=== PATIENT | male | born 1950 | race Caucasian/White ===

== ENCOUNTER 2019-02-09 19:15 | Inpatient (IN) | payer MEDICARE, BC ==
--- NOTE | 2019-02-09 19:22 | ED Physician Documentation ---
General Adult - HISTORIAN Historian: patient - HPI Stated Complaint: cough, failed antibitoic treatment, weakness, aches and SOA x 7 days Chief Complaint: General Adult Onset: days ago (7) Timing: still present Severity: moderate Further Comments: yes (He reports over a week ago he was seen and treated by his PCP for a resp illness. He states he did not feel improvement. Rather he feels about 8 days ago he felt worse than he did today. He states he returned a call to his PCP today and he was called in another antibitoic but states he just couldnt take how bad he was feeling. He has body aches, cough, shortness of air, and general fatigue. He has no chest pain per his report. No rash. No out of country travel. He denies any blood in his sputum.) Last known Well Code/Unknown Code: Unknown - ROS CONST: recent illness, weakness, chills. denies: fever, weight loss EYES/ENT: denies: sore throat, nasal drainage CVS/RESP: chest pain, shortness of breath, cough GI/: none MS/SKIN/LYMPH: denies: rash, swollen glands, leg pain NEURO/PSYCH: denies: headache, fainting, dizziness, numbness, difficulty walking, difficulty with speech - PAST HX Past History: CHF, hypertension Immunizations: UTD Allergies/Adverse Reactions: Allergies Allergy/AdvReac Type Severity Reaction Status Date / Time fenoprofen [From Nalfon] Allergy Verified 02/09/19 20:10 Sulfa (Sulfonamide Allergy Verified 02/09/19 20:10 Antibiotics) Home Medications: Ambulatory Orders Medication Instructions Recorded Fluconazole [Diflucan] 150 mg PO DAILY 02/09/19 Furosemide [Lasix] 20 mg PO TID 02/09/19 Guaifenesin [Mucinex] 600 mg PO BID 02/09/19 Linagliptin [Tradjenta] 5 mg PO HS 02/09/19 Metformin HCl [Glucophage] 1,000 mg PO AM 02/09/19 Metformin HCl [Glucophage] 500 mg PO HS 02/09/19 Non-Formulary [Non Form 5] 120 mg PO DAILY 02/09/19 Potassium Chloride [Klor-Con M10] 10 meq PO QID 02/09/19 Simvastatin [Zocor] 20 mg PO HS 02/09/19 Tamsulosin HCl [Flomax] 0.4 mg PO DAILY 02/09/19 Temazepam 30 mg PO HS 02/09/19 - SOCIAL HX Smoking History: non-smoker Alcohol Use: heavy Drug Use: none - FAMILY HX Family History: No - REVIEWED ASSESSMENTS Nursing Assessment Reviewed: Yes Vitals Reviewed: Yes Progress - Progress Progress: 2100: discussed case with Dr Almeida - will admit DG ED Results Lab/Radiology - Radiology Radiology Impressions: EXAMINATION: CHEST 1VIEW HISTORY: cough x10 days COMPARISON: None FINDINGS: There is cervical spinal fusion hardware. There is no focal consolidation, pleural effusion, or pneumothorax. The cardiomediastinal silhouette is normal. The visible bony thorax is intact. IMPRESSION: No acute pulmonary process. Electronically signed on Feb 09, 2019 7:57:59 PM CDT by: Jose Soriano CT angiography chest History: Shortness of breath Findings: Transverse chest sections are obtained after 85 mL intravenous Omnipaque 350 from which multiplanar 3D maximum intensity projections are obtained. Anterior fusion hardware is present at the cervicothoracic junction. Pulmonary arteries are patent without acute pulmonary embolism. Main pulmonary artery diameter is 4 cm. Several normal sized mediastinal lymph nodes are present, some containing calcifications consistent with old granulomatous disea se. Coronary artery calcifications and normal heart size are observed. A 5 mm lateral right upper lobe nodule is present. Subtle bilateral diffuse central lobular nodules are present raising the possibility of respiratory bronchiolitis or infectious bronchiolitis. There is no confluent infiltrate or pleural effusion. Upper abdomen sections reveal splenomegaly, calcified splenic granulomas, T12 v ertebral body hemangioma, and advanced L1-2 degenerative disc disease. Impression: 1. Diffuse subtle centrilobular nodule pattern raising the possibility of respiratory or infectious bronchiolitis. 2. 5 mm right upper lobe nodule. Recommend six-month non-contrast CT follow-up. 3. Central pulmonary artery enlargement suggests pulmonary hypertension. 4. Mild splenomegaly and calcified splenic granulomas. 5. Coronary artery calcifications. Electronically signed on Feb 09, 2019 8:56:38 PM CDT by: Kurt Mackenzie General Adult Physical Exam - PHYSICAL EXAM GENERAL APPEARANCE: no distress EENT: eye inspection normal, ENT inspection normal, pharynx normal, no signs of dehydration, JEREMI, TM's nml, dry mucous membranes NECK: normal inspection. No: lymphadenopathy RESPIRATORY: no resp distress, chest non-tender, breath sounds normal CVS: reg rate & rhythm, heart sounds normal, equal pulses, no murmur ABDOMEN: soft, normal bowel sounds, non-tender BACK: normal inspection, no CVA tenderness SKIN: warm/dry, other (he is iman in color from his chest up . His SO states this is normal but his face is more flused today at times ) EXTREMITIES: non-tender, normal range of motion, no evidence of injury, no edema NEURO: oriented X3 Discharge Clincal Impression: Pneumonia Qualifiers: Pneumonia type: due to unspecified organism Laterality: bilateral Lung location: unspecified part of lung Qualified Code(s): J18.9 - Pneumonia, unspecified organism Condition: Fair Disposition: ADMITTED INPATIENT Decision to Admit: [id number] Date of Decison to Admit: 02/09/19 Decision Time: 21:06
[2019-02-09] MEDS ORDERED: 0.9 % SODIUM CHLORIDE 1,000 ML IV ONE (19:38)
[2019-02-09] MEDS ORDERED: ASPIRIN 81 MG CHEW TAB PO ONE (19:38)
[2019-02-09 20:08] LABS: eGFR (Non-African) > 60
[2019-02-09 20:10] LABS: MEAN CORPUSCULAR HEMOGLOBIN 29.9 pg (28.0-34.0)
[2019-02-09 20:40] LABS: SEGMENTED NEUTROPHILS % 50 % (39-79)
[2019-02-09 20:41] LABS: ANISOCYTOSIS 2+ (NEGATIVE); EOSINOPHILS % 2 % (0-7); MONOCYTES % 4 % (0-11); PLT EST. EST. AGREES W/PLT CT
[2019-02-09] MEDS ORDERED: AZITHROMYCIN 500 MG in 0.9 % SODIUM CHLORIDE 250 ML IV ONE (21:10)
[2019-02-09] MEDS ORDERED: methylPREDNISolone SOD SUCC 125 MG/2 ML VIAL IVP ONE (21:24)
[2019-02-09] MEDS ORDERED: TEMAZEPAM 15 MG CAP PO ONE (21:33)
[2019-02-09] MEDS: 0.9 % SODIUM CHLORIDE 1,000 ML IV SCH (21:48)
--- NOTE | 2019-02-09 21:56 | Diagnostic Imaging Report ---
GABBIE SCHWARTZ [facility] [address] [facility]. [address] [place], [place]. [address] Report Submission Date: Feb 09, 2019 8:56:38 PM CDT Patient Study Name: ABEBE ALLEN Date: Feb 09, 2019 8:30:23 PM CDT Modality Type: CT\SR Gender: M Description: CT PE CHEST : 54 Institution: [facility] Physician: GABBIE SCHWARTZ CT angiography chest History: Shortness of breath Findings: Transverse chest sections are obtained after 85 mL intravenous Omnipaque 350 from which multiplanar 3D maximum intensity projections are obtained. Anterior fusion hardware is present at the cervicothoracic junction. Pulmonary arteries are patent without acute pulmonary embolism. Main pulmonary artery diameter is 4 cm. Several normal sized mediastinal lymph nodes are present, some containing calcifications consistent with old granulomatous disease. Coronary artery calcifications and normal heart size are observed. A 5 mm lateral right upper lobe nodule is present. Subtle bilateral diffuse central lobular nodules are present raising the possibility of respiratory bronchiolitis or infectious bronchiolitis. There is no confluent infiltrate or pleural effusion. Upper abdomen sections reveal splenomegaly, calcified splenic granulomas, T12 vertebral body hemangioma, and advanced L1-2 degenerative disc disease. Impression: 1. Diffuse subtle centrilobular nodule pattern raising the possibility of respiratory or infectious bronchiolitis. 2. 5 mm right upper lobe nodule. Recommend six-month non-contrast CT follow-up. 3. Central pulmonary artery enlargement suggests pulmonary hypertension. 4. Mild splenomegaly and calcified splenic granulomas. 5. Coronary artery calcifications. Electronically signed on Feb 09, 2019 8:56:38 PM CDT by: Kurt GUPTA
--- NOTE | 2019-02-09 21:58 | Diagnostic Imaging Report ---
GABBIE SCHWARTZ [facility] [address] [facility] [address] [place], [place]. [address] Report Submission Date: Feb 09, 2019 7:57:59 PM CDT Patient Study Name: ABEBE ALLEN Date: Feb 09, 2019 7:37:00 PM CDT Modality Type: DX Gender: M Description: CHEST 1VIEW : 54 Institution: [facility] Physician: GABBIE SCHWARTZ EXAMINATION: CHEST 1VIEW HISTORY: cough x10 days COMPARISON: None FINDINGS: There is cervical spinal fusion hardware. There is no focal consolidation, pleural effusion, or pneumothorax. The cardiomediastinal silhouette is normal. The visible bony thorax is intact. IMPRESSION: No acute pulmonary process. Electronically signed on Feb 09, 2019 7:57:59 PM CDT by: Jose GUPTA
[2019-02-09 22:36] VITALS: BMI 38.7
[2019-02-09] MEDS ORDERED: IPRATROPIUM/ALBUTEROL SULFATE 3 ML AMPUL.NEB NEB ONE (23:12)
[2019-02-10] MEDS: metFORMIN HCl 500 MG TABLET PO SCH ×3 (01:05→20:50)
[2019-02-10] MEDS: AZITHROMYCIN 500 MG in 0.9 % SODIUM CHLORIDE 250 ML IV SCH ×2 (01:06→20:51)
[2019-02-10] MEDS: IPRATROPIUM/ALBUTEROL SULFATE 3 ML AMPUL.NEB NEB SCH ×10 (01:07→20:55)
[2019-02-10] MEDS ORDERED: IPRATROPIUM/ALBUTEROL SULFATE 3 ML AMPUL.NEB NEB ONE ×5 (05:00→20:40)
[2019-02-10 07:22] LABS: eGFR (Non-African) > 60
--- NOTE | 2019-02-10 08:03 | History and Physical Report ---
History of Present Illnes - History of Present Illness Reason for Visit: Feeling poorly History of Present Illness: Patient reports he started feeling poorly a week or two ago. Saw his PCP a week ago - put on doxycycline for bronchitis and given 3 different shots, each by a few days - he is unsure what the shots were but he gets steroid shots frequently from PCP. He hasn't felt any better. PCP called in new antibiotic yesterday but he felt too poorly to take it so came to ER. Found to have 29,000 WBC and evidence of early pneumonia. His appetite has been ok but temp 99.4 (runs 97.4), sneezing, coughing, wheeze, and SOB. Has been told he has some mild COPD in the past but no inhaler for years. SAT in ER 87%. Improved to 95% with O2 at 2 L. Patient tells me he used to be 100 pounds heavier and wore O2 all the time. (Lost weight with cutting out bread and drinking tequila. Has quit drinking now). Quit smoking in 1984. - Past Medical History Cardiac: Other (Arrythmia - saw Cardiology - negative w/u including stress test but put on Cartia. 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 Endocrine: Diabetes (1995. A1C 6.0 a month ago on metformin and trajenta.) - Past Surgical History Past Surgical History: Other (R arm cyst; R meniscal repair, R hammer toe, Penile implant) - Past Family History Mother Family History: DM, Hypertension, (102) Father Family History: (WW1 complications) - Past Social History Smoke: Quit (1984) Occupation: [employer] Alcohol: Rare Drugs: None Lives: Alone Domestic Violence: Negative - Health Maintenance Health Maintenance: Influenza Vaccine, Pneumococcal Vaccine Influenza Vaccine: Current for this Influenza Season Pneumonia Vaccine: Yes Resuscitation Status: Resusciation Status Resuscitation Status Full Code Review of Systems - Review of Systems Constitutional: Fever, Weakness Eyes: negative: pain ENT: negative: Ear Pain, Ear Discharge Respiratory: Cough, Shortness of Breath, Wheezing Cardiovascular: negative: Chest Pain Gastrointestinal: negative: Nausea, Vomiting, Abdominal Pain Genitourinary: negative: Dysuria, Frequency Musculoskeletal: Foot Pain Skin: negative: Rash Neurological: Weakness - Medications/Allergies Allergies/Adverse Reactions: Allergies Allergy/AdvReac Type Severity Reaction Status Date / Time fenoprofen [From Nalfon] Allergy Verified 02/09/19 20:10 Sulfa (Sulfonamide Allergy Verified 02/09/19 20:10 Antibiotics) Home Medications: Home Medications Fluconazole [Diflucan] 150 mg PO DAILY 02/09/19 Furosemide [Lasix] 20 mg PO TID 02/09/19 Guaifenesin [Mucinex] 600 mg PO BID 02/09/19 Linagliptin [Tradjenta] 5 mg PO HS 02/09/19 Metformin HCl [Glucophage] 1,000 mg PO AM 02/09/19 Metformin HCl [Glucophage] 500 mg PO HS 02/09/19 Non-Formulary [Non Form 5] 120 mg PO DAILY 02/09/19 Potassium Chloride [Klor-Con M10] 10 meq PO QID 02/09/19 Simvastatin [Zocor] 20 mg PO HS 02/09/19 Tamsulosin HCl [Flomax] 0.4 mg PO DAILY 02/09/19 Temazepam 30 mg PO HS 02/09/19 Doxycycline Hyclate 100 mg PO DAILY 02/10/19 Metolazone 2.5 mg PO [id number] 02/10/19 Current Inpatient Medications: Current Inpatient Medications Albuterol/Ipratropium (Duoneb) 3 ml NEB Q4 [facility] Last Admin: 02/10/19 05:47 Dose: 3 ml Albuterol/Ipratropium (Duoneb) 3 ml NEB Q4 [facility] Last Admin: 02/10/19 05:49 Dose: Not Given Diltiazem HCl (Cardizem Cd) 120 mg PO DAILY [facility] Furosemide (Lasix) 20 mg PO TID [facility] Azithromycin 500 mg/ Sodium (Chloride) 250 mls @ 125 mls/hr IV Q24H [facility] Stop: 02/19/19 21:59 Last Admin: 02/10/19 01:06 Dose: Not Given Ceftriaxone Sodium 1 gm/ (Sodium Chloride) 50 mls @ 100 mls/hr IV DAILY [facility] Sodium Chloride (Normal Saline) 1,000 mls @ 100 mls/hr IV Q10H [facility] Last Admin: 02/09/19 21:48 Dose: 100 mls/hr Metformin HCl (Glucophage) 500 mg PO HS [facility] Last Admin: 02/10/19 01:05 Dose: 500 mg Metformin HCl (Glucophage) 1,000 mg PO AM [facility] Methylprednisolone Sodium Succinate (Solu-Medrol) 60 mg IVP Q12 [facility] Potassium Chloride (Klor-Con 10) 10 meq PO DAILY [facility] Simvastatin (Zocor) 20 mg PO HS [facility] Tamsulosin HCl (Flomax) 0.4 mg PO DAILY [facility] Exam - Exam Vital Signs: Vital Signs (72 hours) 02/09/19 02/09/19 02/09/19 19:15 21:21 22:00 Temperature 98.1 F 99.6 F Pulse Rate 105 H Pulse Rate [ 100 H 105 H Left Pulse ox] Respiratory 26 H 29 H Rate Blood Pressure 118/55 106/42 [Left Arm] O2 Sat by Pulse 87 L 94 94 Oximetry 02/09/19 02/09/19 02/09/19 22:15 22:21 22:31 Temperature 99.6 F 99.6 F Pulse Rate 90 Pulse Rate [ 94 H 105 H Left Pulse ox] Respiratory 24 29 H Rate Blood Pressure 106/42 106/42 [Left Arm] O2 Sat by Pulse 94 94 Oximetry 02/09/19 02/10/19 02/10/19 23:21 00:21 01:17 Temperature 98.6 F Pulse Rate 83 88 Pulse Rate [ 92 H Left Pulse ox] Respiratory 20 Rate Blood Pressure 139/88 [Left Arm] O2 Sat by Pulse 96 Oximetry 02/10/19 02/10/19 02/10/19 01:21 02:21 02:31 Temperature 98.6 F Pulse Rate 90 84 Pulse Rate [ 92 H Left Pulse ox] Respiratory 20 Rate Blood Pressure 139/88 [Left Arm] O2 Sat by Pulse 96 Oximetry 02/10/19 02/10/19 02/10/19 03:21 04:00 05:00 Temperature Pulse Rate 84 84 Pulse Rate [ Left Pulse ox] Respiratory Rate Blood Pressure [Left Arm] O2 Sat by Pulse 98 Oximetry 02/10/19 02/10/19 05:21 06:00 Temperature 97.3 F L Pulse Rate Pulse Rate [ 97 H 97 H Left Pulse ox] Respiratory 18 18 Rate Blood Pressure 150/62 [Left Arm] O2 Sat by Pulse 97 Oximetry General: Alert, Oriented to Person, Oriented to Place, Oriented to Time, Cooperative, No acute distress HEENT: Atraumatic, PERRLA, EOMI, Mouth Mucous membr. moist/[place] Neck: Normal Range of Motion Lungs: Rhonchi Cardiovascular: Regular rate Abdomen: Normal bowel sounds, Soft, No tenderness Integumentary: Normal Extremities: No edema Neurological: Normal gait, Normal speech, Strength Equal Bilat, Normal tone, Cranial nerves 3-12 NL Psych/Mental Status: Mental status NL, Mood NL, Appropriate Affect, Intact Judgment - Laboratory Results Laboratory Results: Laboratory Results 02/09/19 02/09/19 02/09/19 19:50 19:50 19:50 WBC 29.90 H RBC 5.36 H Hgb 15.0 Hct 48.5 MCV 91.0 MCH 29.9 MCHC 33.1 RDW 15.3 H Plt Count 209 Seg Neutrophils % 50 Band Neutrophils % 33 H Lymphocytes % 6 L Monocytes % 4 Eosinophils % 2 Reactive Lymphocytes 5 Platelet Estimate Est. agrees w/plt ct Plt Morphology Comment Normal Anisocytosis 2+ H D-Dimer 525 Sodium 132 L Potassium 3.4 L Chloride 92 L Carbon Dioxide 28 BUN 23 H Creatinine 1.00 Estimated Creat Clear Est GFR ( Amer) > 60 Est GFR (Non-Af Amer) > 60 Glucose 202 H Lactate 2.0 Calcium 8.9 Total Bilirubin 0.8 AST 66 H ALT 40 Alkaline Phosphatase 67 Troponin I < 0.012 L NT-Pro-B Natriuret Pep 242.0 H Total Protein 7.8 Albumin 4.3 02/10/19 06:15 WBC RBC Hgb Hct MCV MCH MCHC RDW Plt Count Seg Neutrophils % Band Neutrophils % Lymphocytes % Monocytes % Eosinophils % Reactive Lymphocytes Platelet Estimate Plt Morphology Comment Anisocytosis D-Dimer Sodium 134 L Potassium 3.7 Chloride 94 L Carbon Dioxide 29 BUN 21 H Creatinine 0.90 Estimated Creat Clear 135 Est GFR ( Amer) > 60 Est GFR (Non-Af Amer) > 60 Glucose 285 H Lactate Calcium 8.9 Total Bilirubin 0.7 AST 45 ALT 33 Alkaline Phosphatase 62 Troponin I NT-Pro-B Natriuret Pep Total Protein 7.4 Albumin 4.1 Assessment/Plan - Assessment/Plan (1) Diabetes Status: Chronic Current Visit: Yes Qualifiers: Diabetes mellitus type: type 2 Diabetes mellitus care home insulin use: 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 Will so Accuchecks with SSI. (2) COPD (chronic obstructive pulmonary disease) Status: Acute Current Visit: Yes Qualifiers: COPD type: unspecified COPD Qualified Code(s): J44.9 - Chronic obstructive pulmonary disease, unspecified Plan: Will do scheduled duonebs. IV steroids. Wean O2 as tolerated. (3) Chronic edema Status: Acute Current Visit: Yes Plan: Will give IVF for a liter then SLIV so we don't fluid overload. (4) Pneumonia Status: Acute Current Visit: Yes Qualifiers: Pneumonia type: due to unspecified organism Laterality: bilateral Lung location: unspecified part of lung Qualified Code(s): J18.9 - Pneumonia, unspecified organism Plan: Patient failed outpatient treatment and has an O2 requirement with 29,000 WBC and 33% bands. Admit for rocephin and zithromax. Blood cultures pending. Lovenox and SCD's. VTE Assessment - RISK FACTOR SCORE VTE RISK FACTOR SCORES: AGE OVER 60 YEARS, ACUTE INFECTION OTHER THEN SEPSIS - RISK VTE MODERATE RISK: SCORE OF 2 (RISK PROXIMAL DVT 2-4%) PROPHYAXIS NEEDED
[2019-02-10 08:09] LABS: MEAN CORPUSCULAR HEMOGLOBIN 29.9 pg (28.0-34.0)
[2019-02-10 08:10] LABS: PLT EST. EST. AGREES W/PLT CT; SEGMENTED NEUTROPHILS % 79 % (39-79)
[2019-02-10] MEDS ORDERED: TAMSULOSIN HCL 0.4 MG CAP.ER.24H PO ONE (08:48)
[2019-02-10] MEDS ORDERED: metFORMIN HCl 500 MG TABLET PO ONE ×2 (08:48→20:41)
[2019-02-10] MEDS ORDERED: FUROSEMIDE 20 MG TABLET PO ONE ×3 (08:49→17:30)
[2019-02-10] MEDS ORDERED: POTASSIUM CHLORIDE 10 MEQ TABLET.ER PO ONE ×2 (08:49→20:40)
[2019-02-10] MEDS ORDERED: methylPREDNISolone SOD SUCC 40 MG/ML VIAL ONE ×2 (08:49→20:40)
[2019-02-10] MEDS ORDERED: cefTRIAXone SODIUM 1 GM INJ ONE (08:50)
[2019-02-10] MEDS ORDERED: 0.9 % SODIUM CHLORIDE 50 ML IV ONE (08:50)
[2019-02-10] MEDS ORDERED: POTASSIUM CHLORIDE 10 MEQ TABLET.ER PO SCH (09:00)
[2019-02-10] MEDS: TAMSULOSIN HCL 0.4 MG CAP.ER.24H PO SCH (09:04)
[2019-02-10] MEDS: FUROSEMIDE 20 MG TABLET PO SCH ×3 (09:06→17:47)
[2019-02-10] MEDS: methylPREDNISolone SOD SUCC 40 MG/ML VIAL IVP SCH ×2 (09:06→20:56)
[2019-02-10] MEDS: cefTRIAXone SODIUM 1 GM in 0.9 % SODIUM CHLORIDE(MINIBAG+ 50 ML IV SCH (09:06)
[2019-02-10] MEDS: 0.9 % SODIUM CHLORIDE 1,000 ML IV SCH (09:23)
[2019-02-10] MEDS ORDERED: CYCLOBENZAPRINE HCL 10 MG TABLET PO PRN (10:58)
[2019-02-10] MEDS ORDERED: RED CRASH CART TAGS 1 EACH MC ONE (11:24)
[2019-02-10] MEDS: TRADJENTA 5 MG PO SCH (11:28)
[2019-02-10] MEDS ORDERED: POTASSIUM CHLORIDE 20 MEQ TABLET.ER PO SCH (12:00)
[2019-02-10] MEDS ORDERED: POTASSIUM CHLORIDE 20 MEQ TABLET.ER ONE (12:48)
[2019-02-10] MEDS ORDERED: HYDROcodone /APAP 5/325 1 EACH TABLET PO PRN (18:25)
[2019-02-10] MEDS ORDERED: SODIUM CHLORIDE 0.9% 1 NASAL SPRAY BTL IEN PRN (18:27)
[2019-02-10] MEDS ORDERED: SODIUM CHLORIDE 0.9% 1 NASAL SPRAY BTL IEN ONE (18:28)
[2019-02-10] MEDS ORDERED: HYDROcodone /APAP 5/325 1 EACH TABLET ONE (18:28)
[2019-02-10] MEDS ORDERED: 0.9 % SODIUM CHLORIDE 250 ML IV ONE (20:40)
[2019-02-10] MEDS ORDERED: AZITHROMYCIN 500 MG VIAL IV ONE (20:41)
[2019-02-10] MEDS ORDERED: SIMVASTATIN 20 MG TABLET ONE (20:42)
[2019-02-10] MEDS ORDERED: TEMAZEPAM 15 MG CAP ONE (20:42)
[2019-02-10] MEDS: POTASSIUM CHLORIDE 10 MEQ TABLET.ER PO SCH (20:58)
[2019-02-10] MEDS ORDERED: SIMVASTATIN 20 MG TABLET PO SCH (21:00)
[2019-02-10] MEDS ORDERED: TEMAZEPAM 15 MG CAP PO SCH (21:00)
[2019-02-10] MEDS ORDERED: guaiFENesin 600 MG TAB.ER.12H PO ONE (21:23)
[2019-02-10] MEDS ORDERED: CYCLOBENZAPRINE HCL 10 MG TABLET PO ONE (21:23)
[2019-02-10] MEDS: guaiFENesin 600 MG TAB.ER.12H PO PRN (21:25)
[2019-02-11] MEDS ORDERED: IPRATROPIUM/ALBUTEROL SULFATE 3 ML AMPUL.NEB NEB ONE ×3 (01:26→08:13)
[2019-02-11] MEDS: IPRATROPIUM/ALBUTEROL SULFATE 3 ML AMPUL.NEB NEB SCH ×3 (02:01→09:37)
[2019-02-11 07:55] LABS: eGFR (Non-African) > 60
[2019-02-11 07:57] LABS: MEAN CORPUSCULAR HEMOGLOBIN 29.6 pg (28.0-34.0)
[2019-02-11 07:59] LABS: MONOCYTES % 2 % (0-11); SEGMENTED NEUTROPHILS % 80 % (39-79)
[2019-02-11] MEDS ORDERED: TAMSULOSIN HCL 0.4 MG CAP.ER.24H PO ONE (08:14)
[2019-02-11] MEDS ORDERED: FUROSEMIDE 20 MG TABLET PO ONE (08:14)
[2019-02-11] MEDS ORDERED: POTASSIUM CHLORIDE 10 MEQ TABLET.ER PO ONE (08:14)
[2019-02-11] MEDS ORDERED: metFORMIN HCl 500 MG TABLET PO ONE (08:15)
[2019-02-11] MEDS ORDERED: cefTRIAXone SODIUM 1 GM INJ ONE (08:15)
[2019-02-11] MEDS ORDERED: 0.9 % SODIUM CHLORIDE(MINIBAG+ 50 ML IV ONE (08:16)
[2019-02-11] MEDS ORDERED: POTASSIUM CHLORIDE 10 MEQ TABLET.ER PO SCH (09:00)
--- NOTE | 2019-02-11 09:07 | Discharge Summary ---
Discharge Summary - Discharge [facility] Admission Date: 02/09/19 Discharge Date: 02/11/19 History of Present Illness: Patient reports he started feeling poorly a week or two ago. Saw his PCP a week ago - put on doxycycline for bronchitis and given 3 different shots, each by a few days - he is unsure what the shots were but he gets steroid shots frequently from PCP. He hasn't felt any better. PCP called in new antibiotic yesterday but he felt too poorly to take it so came to ER. Found to have 29,000 WBC and evidence of early pneumonia. His appetite has been ok but temp 99.4 (runs 97.4), sneezing, coughing, wheeze, and SOB. Has been told he has some mild COPD in the past but no inhaler for years. SAT in ER 87%. Improved to 95% with O2 at 2 L. Patient tells me he used to be 100 pounds heavier and wore O2 all the time. (Lost weight with cutting out bread and drinking tequila. Has quit drinking now). Quit smoking in 1984. Condition at Discharge: Stable Home Medications: Ambulatory Orders Medication Instructions Recorded Furosemide [Lasix] 20 mg PO TID 02/09/19 Guaifenesin [Mucinex] 600 mg PO BID 02/09/19 Linagliptin [Tradjenta] 5 mg PO HS 02/09/19 Metformin HCl [Glucophage] 1,000 mg PO AM 02/09/19 Metformin HCl [Glucophage] 500 mg PO HS 02/09/19 Non-Formulary [Non Form 5] 120 mg PO DAILY 02/09/19 Potassium Chloride [Klor-Con M10] 10 meq PO QID 02/09/19 Simvastatin [Zocor] 20 mg PO HS 02/09/19 Tamsulosin HCl [Flomax] 0.4 mg PO DAILY 02/09/19 Temazepam 30 mg PO HS 02/09/19 Metolazone 2.5 mg PO [id number] 02/10/19 Albuterol Sulfate [Albuterol 8.5 gm IH Q4H PRN #1 hfa.aer.ad 02/11/19 Sulfate Hfa] Albuterol Sulfate [Albuterol 8.5 gm IH Q4H PRN #1 hfa.aer.ad 02/11/19 Sulfate Hfa] Cyclobenzaprine HCl [Flexeril] 10 mg PO TID PRN tablet 02/11/19 Levofloxacin [Levaquin] 750 mg PO DAILY #7 tablet 02/11/19 Levofloxacin [Levaquin] 750 mg PO DAILY #7 tablet 02/11/19 Consultations this Visit: None Procedures this Visit: None Allergies/Adverse Reactions: Allergies Allergy/AdvReac Type Severity Reaction Status Date / Time fenoprofen [From Nalfon] Allergy Verified 02/09/19 20:10 Sulfa (Sulfonamide Allergy Verified 02/09/19 20:10 Antibiotics) Discharge Summary: Patient responded well to rocephin and zithromax. He was feeling better with lower WBC by the next day. Within 2 days, Oxygen had been weaned to off, patient was feeling good and WBC back to baseline. He was discharged home with levaquin 750 mg daily x 7 days. He completed 3 days of zithromax 500 mg in the hospital. He received duonebs while in the hospital and was sent home with albuterol inhaler. He is to follow up with his PCP in a week. He was given CD with Chest CT and report and asked to give that to PCP. Hospital Course: Discharge Dx: Pneumonia with leukocytosis. COPD. DM. Disposition -home
[2019-02-11 09:09] VITALS: BP 124/69
[2019-02-11] MEDS ORDERED: methylPREDNISolone SOD SUCC 40 MG/ML VIAL ONE (09:16)
[2019-02-11] MEDS: TAMSULOSIN HCL 0.4 MG CAP.ER.24H PO SCH (09:18)
[2019-02-11] MEDS: POTASSIUM CHLORIDE 10 MEQ TABLET.ER PO SCH (09:19)
[2019-02-11] MEDS: TRADJENTA 5 MG PO SCH (09:19)
[2019-02-11] MEDS: metFORMIN HCl 500 MG TABLET PO SCH (09:19)
[2019-02-11] MEDS: FUROSEMIDE 20 MG TABLET PO SCH (09:19)
[2019-02-11] MEDS ORDERED: guaiFENesin 600 MG TAB.ER.12H PO ONE (09:28)
[2019-02-11] MEDS: guaiFENesin 600 MG TAB.ER.12H PO PRN (09:29)
[2019-02-11] MEDS: methylPREDNISolone SOD SUCC 40 MG/ML VIAL IVP SCH (09:38)
[2019-02-11] MEDS: cefTRIAXone SODIUM 1 GM in 0.9 % SODIUM CHLORIDE(MINIBAG+ 50 ML IV SCH (09:38)
[2019-02-11] MEDS ORDERED: AZITHROMYCIN 500 MG VIAL IV ONE (10:00)
[2019-02-11] MEDS ORDERED: 0.9 % SODIUM CHLORIDE 250 ML IV ONE (10:00)
[2019-02-11] MEDS: AZITHROMYCIN 500 MG in 0.9 % SODIUM CHLORIDE 250 ML IV SCH (10:11)
[2019-02-11] MEDS ORDERED: RED CRASH CART TAGS 1 EACH MC ONE (11:07)
== END 2019-02-11 12:20 | disposition home or self-care (01) | DRG 195 ==
LOC: ED 19:15 → SOUTH 21:15
PROVIDERS: ADMIT Family Medicine; ATTEND Family Medicine
DX: J18.9 Pneumonia, unspecified organism (principal); E11.9 Type 2 diabetes mellitus without complications; D72.829 Elevated white blood cell count, unspecified; R91.1 Solitary pulmonary nodule; I10 Essential (primary) hypertension; R50.9 Fever, unspecified; R06.02 Shortness of breath; J44.9 Chronic obstructive pulmonary disease, unspecified; R06.09 Other forms of dyspnea
CPT/HCPCS: 36415; 71045; 71275; 80048; 80053; 83605; 83880; 84484; 85025; 85379; 87040; 93005; 94640; 96365; 99285; A9270; J0456; J0696; J1030; J2930; J7030; J7050; Q9967; 87400; 99232; 99238; J2920; S1016

== ENCOUNTER 2019-07-31 09:46 | Outpatient (CLI) | payer MEDICARE, BC ==
--- NOTE | 2019-07-31 10:22 | Diagnostic Imaging Report ---
ARPAN ELMORE [facility] [address] [facility] [address] [place], [place]. [address] Report Submission Date: Jul 31, 2019 10:12:34 AM CDT Patient Study Name: ABEBE ALLEN Date: Jul 31, 2019 9:51:36 AM CDT Modality Type: CT\SR Gender: M Description: CT CHEST W/O CONTRAST : 54 Institution: [facility] Physician: ARPAN ELMORE CT chest non contrast Date of study: CLINICAL HISTORY: LUNG NODULE 6 MONTH FOLLOW UP (Hx) / ITS.REASON LUNG NODULE FOLLOW UP Note time : 07/31/2019 10:02:06 AM User : Elizabeth Singh LUNG NODULE 6 MONTH FOLLOW UP (DICOM Hx) (DICOM Hx) TECHNIQUE: 5 mm contiguous axial images of the chest. FINDINGS: Prior CT chest from February 09 2019. Upper abdomen unremarkable. Heart size normal. Apathy. Lungs are clear. No pneumothorax or cynthia fusion. 5 mm indeterminate right upper lobe pulmonary nodule image 20 is unchanged. No new nodule is seen. Impression: Stable 5 mm indeterminate right upper lobe pulmonary nodule. Recommend follow-up in 1 year. Electronically signed on Jul 31, 2019 10:12:34 AM CDT by: Omid GUPTA
== END 2019-07-31 09:48 ==
LOC: RAD 09:46
PROVIDERS: ATTEND Family Medicine
DX: R91.1 Solitary pulmonary nodule (principal)
CPT/HCPCS: 71250

== ENCOUNTER 2019-08-17 15:37 | Emergency (ER) | payer MEDICARE, BC ==
--- NOTE | 2019-09-10 13:30 | Diagnostic Imaging Report ---
GISEL CALHOUN [facility] [address] [facility] [address] [address] Report Submission Date: Aug 17, 2019 4:54:15 PM CDT Patient Study Name: ABEBE ALLEN Date: Aug 17, 2019 4:08:15 PM CDT Modality Type: US Gender: M Description: US LLEV R/O DVT : 54 Institution: [facility] Physician: GISEL CALHOUN Examination: Ultrasound left vein History: PAIN, REDNESS, SWELLING X1 WEEK. HIT LEG ON SHOWER STOOL Findings: Sonographic evaluation of the left lower extremity venous system from the groin to the popliteal fossa inclusive. Normal compressibility. No luminal filling defect. Normal waveforms and response to augmentation. No popliteal region fluid collection. Imaging in the region of the swelling/bruise without subcutaneous abnormality. Impression: No evidence for deep venous thrombosis. Electronically signed on Aug 17, 2019 4:54:15 PM CDT by: Jaziel GUPTA
== END 2019-08-17 17:18 | disposition home or self-care (01) ==
LOC: ED 15:37
DX: S80.12XA Contusion of left lower leg, initial encounter (principal); X58.XXXA Exposure to other specified factors, initial encounter
CPT/HCPCS: 93971; 99282; 99283